=== PATIENT | female | born 1985 | race Two or more races ===

== ENCOUNTER 2017-08-26 11:56 | Emergency (ER) | payer BC, OTHER ==
[~2017-08-26] VITALS: Ht 175.3 cm; Wt 86.2 kg
--- NOTE | 2017-08-26 12:00 | NUR ---
AMBULATORY IN A STEADY GAIT, PT CAME TO ER W/ A FAMILY MEMBER FOR ON/OFF ABDOMINAL PAIN X 2WKS, WORSE SINCE SUNDAY, NAUSEA. +FACIAL GRIMACING NOTED. VSS NAD RR EVEN AND UNLABORED. PENDING ER EVALUATION
--- NOTE | 2017-08-26 12:05 | NUR ---
PRESENTS TO ER C/O ON/OFF ABDOMINAL PAIN X 2WKS, WORSE SINCE SUNDAY. ALSO C/O NAUSEA, NO VOMITING. A/OX 4. BREATHING EVEN AND UNLABORED. NO SOB. VITALS STABLE. SAFETY AND COMFORT MEASURES IN PLACE. AWAITING MD ORDERS.
[2017-08-26] MEDS ORDERED: ONDANSETRON HCL/PF 4 MG/2 ML VIAL ONE (12:18)
[2017-08-26] MEDS ORDERED: MORPHINE SULFATE INJ 4 MG/ML DISP.SYRIN ONE (12:18)
--- NOTE | 2017-08-26 12:25 | NUR ---
NEW IV STARTED ON RAC, 18 G. BLOOD DRAWN AND SENT TO LAB.
[2017-08-26 12:28] LABS: BASOPHILS % (AUTO) 0.4 % (0.0-2.0); EOSINOPHILS # (AUTO) 0.2 /CMM (0.0-0.7); EOSINOPHILS % (AUTO) 2.6 % (0.0-6.0); HEMATOCRIT 36 % (33-45); HEMOGLOBIN 12.4 g/dL (11.5-14.8); MEAN CORPUSCULAR HEMOGLOBIN 27 PG (26.0-33.0); MEAN CORPUSCULAR HGB CONC 34 g/dl (31.0-36.0); MEAN CORPUSCULAR VOLUME 78 fL (82-100); MONOCYTES # (AUTO) 0.3 /CMM (0.1-1.30); MONOCYTES % (AUTO) 4.3 % (2.0-12.0); NEUTROPHILS # (AUTO) 3.3 /CMM (1.8-8.9); NEUTROPHILS % (AUTO) 48.7 % (43.0-81.0); PLATELET COUNT (AUTO) 372 /CMM (150-450); RDW COEFFICIENT OF VARIATION 11.8 (11.5-15.0); RED BLOOD CELL COUNT(AUTO) 4.62 MIL/uL (4.0-5.2); WHITE BLOOD COUNT (AUTO) 6.8 K/uL (4.3-11.0)
[2017-08-26 12:29] LABS: APPEARANCE,URINE Clear (CLEAR); BILIRUBIN,URINE Negative (NEGATIVE); BLOOD, URINE Moderate Ery/uL (NEGATIVE); COLOR,URINE Yellow (YELLOW); KETONES,URINE Negative (NEGATIVE); LEUKOCYTE ESTERASE ,URINE Trace (NEGATIVE); NITRITE, URINE Negative (NEGATIVE); PH,URINE 6.5 (5.0-8.0); PROTEIN,URINE Negative (NEGATIVE); UGLUCOSE Negative (NEGATIVE); UROBILINOGEN,URINE 0.2 EU/dL (0.2)
[2017-08-26] MEDS ORDERED: ONDANSETRON HCL/PF 4 MG/2 ML VIAL IVP ONE (12:30)
[2017-08-26] MEDS ORDERED: IV NS 0.9% 1,000 ML BAG IV ONE (12:30)
[2017-08-26] MEDS ORDERED: MORPHINE SULFATE INJ 2 MG/ML DISP.SYRIN IV ONE (12:30)
[2017-08-26 12:39] LABS: CALCIUM, SERUM 9.4 mg/dL (8.5-10.1); CREATININE 0.8 mg/dL (0.6-1.3); POTASSIUM 4.2 mmol/L (3.5-5.1)
[2017-08-26 12:44] LABS: BACTERIA,URINE 1+ /HPF (None Seen); SQUAMOUS EPITHELIAL CELL,UR Few /HPF (None Seen)
[2017-08-26 12:50] LABS: ALBUMIN 3.7 g/dL (3.4-5.0); BILIRUBIN,TOTAL 0.4 mg/dL (0.2-1.0); TOTAL PROTEIN, SERUM 7.9 g/dL (6.4-8.2)
--- NOTE | 2017-08-26 13:10 | NUR ---
PATIENT TAKEN TO RADIOLOGY VIA WHEELCHAIR.
--- NOTE | 2017-08-26 13:33 | NUR ---
PATIENT RETURNED FROM RADIOLOGY IN STABLE CONDITION.
--- NOTE | 2017-08-26 16:11 | NUR ---
IV removed. Catheter intact and site benign. Pressure and 4x4 applied to site. No bleeding noted.Patient discharged to home in stable condition. Written and verbal after care instructions given. Patient verbalizes understanding of instruction. ambulatory with a steady gait.
[2017-08-26 16:12] VITALS: BP 125/60
== END 2017-08-26 16:14 | disposition home or self-care (01) ==
LOC: ER 12:01
DX: K80.50 Calculus of bile duct without cholangitis or cholecystitis without obstruction (principal)
CPT/HCPCS: 36415; 74176; 76705; 80048; 80076; 81001; 83690; 84703; 85025; 96361; 96374; 96375; 99285; A4606; J2270; J2405; J7030; Z7610; 81000-TC

== ENCOUNTER 2020-09-03 11:08 | Emergency (ER) | payer MEDICAID, OTHER ==
[~2020-09-03] VITALS: Ht 175.3 cm; Wt 72.6 kg
[2020-09-03 11:30] VITALS: BP 140/90
== END 2020-09-03 12:20 | disposition home or self-care (01) ==
LOC: ER 11:16
DX: U07.1 COVID-19 (principal); R06.02 Shortness of breath
CPT/HCPCS: 71045-TC

== ENCOUNTER 2021-08-28 19:39 | Emergency (ER) | payer MEDICAID ==
[~2021-08-28] VITALS: Ht 175.3 cm; Wt 72.6 kg
[2021-08-28 20:58] VITALS: BP 138/82
--- NOTE | 2021-08-28 21:02 | NUR ---
BIBS FOR C/O CP, BACK PAIN,. ABD PAIN, AND BLE WEAKNESS. TESTED + FOR COVID 4 DAYS AGO. INCREASED PAIN ON INSPIRATION AND COUGH. PT BREATHING EVEN AND UNLABORED PLACED ON MONITOR AND PULSE OX AND SATTING 100% ON RA.
[2021-08-28] MEDS ORDERED: HYDR-4303 PO (21:27)
== END 2021-08-28 21:46 | disposition home or self-care (01) ==
LOC: ER 19:45
DX: U07.1 COVID-19 (principal); R07.89 Other chest pain; Z60.2 Problems related to living alone

== ENCOUNTER 2022-05-15 01:17 | Emergency (ER) | payer SELFPAY ==
[~2022-05-15] VITALS: Ht 165.1 cm; Wt 74.8 kg
[~2022-05-15 01:17] MED LIST: HYDR-4303 PO
--- NOTE | 2022-05-15 02:06 | NUR ---
BROOKS FROM HOME TO ER BED 12. SLEEPING AND VERY DIFFICULT TO AROUSE. BROUGHT IN FOR ETOH. PER REPORT, PT HAD ABOUT 6 DRINKS WHEN SHE WENT TO HER ROOM AND PASSED OUT. NOT IN ANY DISTRESS. BREATHING EVEN AND UNLABORED.
[2022-05-15 02:08] LABS: BASOPHILS % (AUTO) 0.5 % (0.0-2.0); EOSINOPHILS % (AUTO) 0.4 % (0.0-6.0); HEMATOCRIT 36 % (33-45); HEMOGLOBIN 11.7 g/dL (11.5-14.8); LYMPHOCYTES # (AUTO) 1.1 K/uL (0.8-4.8); LYMPHOCYTES % (AUTO) 16.2 % (20.0-44.0); MEAN CORPUSCULAR HGB CONC 33 g/dl (31.0-36.0); MEAN CORPUSCULAR VOLUME 84 fL (82-100); MONOCYTES # (AUTO) 0.1 K/uL (0.1-1.30); MONOCYTES % (AUTO) 2.1 % (2.0-12.0); NEUTROPHILS # (AUTO) 5.3 K/uL (1.8-8.9); NEUTROPHILS % (AUTO) 80.8 % (43.0-81.0); PLATELET COUNT (AUTO) 242 K/uL (150-450); RED BLOOD CELL COUNT(AUTO) 4.26 MIL/uL (4.0-5.2); WHITE BLOOD COUNT (AUTO) 6.5 K/uL (4.3-11.0)
[2022-05-15 02:26] LABS: CALCIUM, SERUM 8.7 mg/dL (8.5-10.1); CARBON DIOXIDE 26 mmol/L (21-32); CHLORIDE 109 mmol/L (98-107); CREATININE 0.9 mg/dL (0.6-1.3); GLUCOSE 122 mg/dL (74-106); POTASSIUM 3.9 mmol/L (3.5-5.1); SODIUM SERUM 142 mmol/L (136-145); UREA NITROGEN, BLOOD 11 mg/dL (7-18)
[2022-05-15 02:32] LABS: ALANINE AMINOTRANSFERASE 16 U/L (12-78); ALBUMIN 3.8 g/dL (3.4-5.0); ALCOHOL, BLOOD 156 mg/dL (0-0); ALKALINE PHOSPHATASE 64 U/L (46-116); ASPARTATE AMINOTRANSFERASE 15 U/L (15-37); BILIRUBIN,DIRECT 0.1 mg/dL (0.0-0.2); BILIRUBIN,TOTAL 0.2 mg/dL (0.2-1.0); TOTAL PROTEIN, SERUM 7.5 g/dL (6.4-8.2)
[2022-05-15 02:34] LABS: ACETAMINOPHEN < 2 ug/ml (10-30)
--- NOTE | 2022-05-15 03:31 | NUR ---
Patient discharged to home in stable condition. Written and verbal after care instructions given. Patient verbalizes understanding of instruction.IV removed. Catheter intact and site benign. Pressure and 4x4 applied to site. No bleeding noted.
[2022-05-15 03:32] VITALS: BP 124/63
== END 2022-05-15 03:42 | disposition home or self-care (01) ==
LOC: ER 01:18
DX: F10.129 Alcohol abuse with intoxication, unspecified (principal); R51.9 Headache, unspecified; Z60.2 Problems related to living alone; Z79.899 Other long term (current) drug therapy; Y90.6 Blood alcohol level of 120-199 mg/100 ml
CPT/HCPCS: 36415; 70450-TC; 80048-TC; 80076-TC; 85025-TC; G0480

== ENCOUNTER 2024-05-24 14:23 | Emergency (ER) | payer SELFPAY ==
[~2024-05-24] VITALS: Ht 175.3 cm; Wt 80.7 kg
[2024-05-24] MEDS: METOCLOPRAMIDE HCL 10 MG/2 ML VIAL IV ONE (14:00)
[2024-05-24 14:44] VITALS: TEMP 98.2
[2024-05-24] MEDS ORDERED: FAMOTIDINE/PF INJ 40 MG in IV D5W 50 ML IV ONE (15:00)
[2024-05-24] MEDS: IV NS 0.9% 1,000 ML BAG IV ONE (15:10)
[2024-05-24] MEDS: PANTOPRAZOLE 80 MG in IV NS 0.9% 100 ML IV ONE (15:15)
[2024-05-24 15:16] LABS: BASOPHILS % (AUTO) 0.5 % (0.0-2.0); EOSINOPHILS # (AUTO) 0.1 K/uL (0.0-0.7); EOSINOPHILS % (AUTO) 2.4 % (0.0-6.0); HEMATOCRIT 36 % (33-45); LYMPHOCYTES % (AUTO) 37.7 % (20.0-44.0); MEAN CORPUSCULAR HEMOGLOBIN 27 PG (26.0-33.0); MEAN CORPUSCULAR HGB CONC 33 g/dl (31.0-36.0); MEAN CORPUSCULAR VOLUME 83 fL (82-100); MONOCYTES # (AUTO) 0.3 K/uL (0.1-1.30); MONOCYTES % (AUTO) 5.5 % (2.0-12.0); NEUTROPHILS # (AUTO) 2.9 K/uL (1.8-8.9); NEUTROPHILS % (AUTO) 53.9 % (43.0-81.0); PLATELET COUNT (AUTO) 268 K/uL (150-450); WHITE BLOOD COUNT (AUTO) 5.4 K/uL (4.3-11.0)
[2024-05-24 15:30] LABS: INR 1.01 (0.91-1.10); PARTIAL THROMBOPLASTIN TIME 27.3 SEC (24.3-34.3); PROTHROMBIN TIME 10.7 SECS (9.2-11.1)
[2024-05-24] MEDS ORDERED: FAMOTIDINE/PF INJ 20 MG/2 ML VIAL IV ONE (15:31)
[2024-05-24 15:35] LABS: CALCIUM, SERUM 8.9 mg/dL (8.5-10.1); CREATININE 0.8 mg/dL (0.6-1.3); POTASSIUM 3.8 mmol/L (3.5-5.1)
[2024-05-24] MEDS: FAMOTIDINE/PF INJ 20 MG/2 ML VIAL IV ONE (15:39)
[2024-05-24 15:40] LABS: ALBUMIN 3.6 g/dL (3.4-5.0); BILIRUBIN,DIRECT 0.1 mg/dL (0.0-0.2); BILIRUBIN,TOTAL 0.3 mg/dL (0.2-1.0); TOTAL PROTEIN, SERUM 7.2 g/dL (6.4-8.2)
[2024-05-24] MEDS ORDERED: METOCLOPRAMIDE HCL 10 MG/2 ML VIAL ONE (15:57)
[2024-05-24 16:12] LABS: PREGNANCY TEST URINE QUAL NEGATIVE (NEGATIVE)
[2024-05-24] MEDS ORDERED: IV NS 0.9% 250 ML IV ONE (16:22)
[2024-05-24] MEDS ORDERED: IOHEXOL-300 100 ML VIAL IV ONE (16:22)
[2024-05-24] MEDS ORDERED: CT SWABBABLE VALVE TRANS SET 1 EA INFUS.SET MC ONE (16:22)
[2024-05-24] MEDS ORDERED: FAMO20TA80 PO (18:16)
[2024-05-24] MEDS ORDERED: PANT40TA49 PO (18:16)
[2024-05-24] MEDS ORDERED: SUCR1TAB31 PO (18:16)
[2024-05-24 18:34] VITALS: BP 125/80; O2SAT 97
== END 2024-05-24 18:34 | disposition home or self-care (01) ==
LOC: ER 14:36
DX: K52.9 Noninfective gastroenteritis and colitis, unspecified (principal); R10.84 Generalized abdominal pain; R11.0 Nausea; Z87.11 Personal history of peptic ulcer disease; Z60.2 Problems related to living alone
CPT/HCPCS: 99285; 74177; 96365; 76705; 96375; 85025; 80048; 80076; 84703; 36415; 85730; 86850; J3490; J2765; J7030 ×2; J7050; J2470; Q9967; J7060

== ENCOUNTER 2024-09-27 18:32 | Emergency (ER) | payer SELFPAY ==
[~2024-09-27] VITALS: Ht 175.3 cm; Wt 81.6 kg
[~2024-09-27 18:32] MED LIST changes: +FAMO20TA80 PO; +PANT40TA49 PO; +SUCR1TAB31 PO
[2024-09-27] MEDS: KETOROLAC TROMETHAMINE 15 MG/ML VIAL IV ONE (19:00)
[2024-09-27] MEDS ORDERED: diphenhydrAMINE HCL 50 MG/ML VIAL ONE (19:11)
[2024-09-27] MEDS ORDERED: METOCLOPRAMIDE HCL 10 MG/2 ML VIAL ONE (19:11)
[2024-09-27] MEDS: diphenhydrAMINE HCL 50 MG/ML VIAL IV ONE (19:16)
[2024-09-27] MEDS: IV NS 0.9% 1,000 ML BAG IV ONE (19:16)
[2024-09-27] MEDS: METOCLOPRAMIDE HCL 10 MG/2 ML VIAL IV ONE (19:17)
[2024-09-27 19:22] LABS: BASOPHILS % (AUTO) 0.4 % (0.0-2.0); EOSINOPHILS # (AUTO) 0.2 K/uL (0.0-0.7); EOSINOPHILS % (AUTO) 2.3 % (0.0-6.0); HEMATOCRIT 36 % (33-45); HEMOGLOBIN 11.8 g/dL (11.5-14.8); LYMPHOCYTES # (AUTO) 3.1 K/uL (0.8-4.8); LYMPHOCYTES % (AUTO) 42.2 % (20.0-44.0); MEAN CORPUSCULAR HEMOGLOBIN 27 PG (26.0-33.0); MEAN CORPUSCULAR HGB CONC 33 g/dl (31.0-36.0); MEAN CORPUSCULAR VOLUME 83 fL (82-100); MONOCYTES # (AUTO) 0.5 K/uL (0.1-1.30); MONOCYTES % (AUTO) 6.2 % (2.0-12.0); NEUTROPHILS # (AUTO) 3.5 K/uL (1.8-8.9); NEUTROPHILS % (AUTO) 48.9 % (43.0-81.0); PLATELET COUNT (AUTO) 253 K/uL (150-450); RED BLOOD CELL COUNT(AUTO) 4.33 MIL/uL (4.0-5.2); RED CELL DISTRIBUTION WIDTH 13.1 % (11.5-15.0); WHITE BLOOD COUNT (AUTO) 7.3 K/uL (4.3-11.0)
[2024-09-27 19:35] LABS: CALCIUM, SERUM 8.8 mg/dL (8.5-10.1); CREATININE 0.8 mg/dL (0.6-1.3); POTASSIUM 4.2 mmol/L (3.5-5.1)
[2024-09-27 19:44] LABS: ALBUMIN 3.8 g/dL (3.4-5.0); BILIRUBIN,DIRECT 0.1 mg/dL (0.0-0.2); BILIRUBIN,TOTAL 0.2 mg/dL (0.2-1.0); TOTAL PROTEIN, SERUM 7.4 g/dL (6.4-8.2)
[2024-09-27] MEDS ORDERED: KETOROLAC TROMETHAMINE 15 MG/ML VIAL ONE (20:21)
[2024-09-27 20:40] VITALS: BP 116/65; TEMP 97.9; O2SAT 98
== END 2024-09-27 20:41 | disposition home or self-care (01) ==
LOC: ER 18:38
DX: R07.89 Other chest pain (principal); R51.9 Headache, unspecified; M79.602 Pain in left arm; R10.9 Unspecified abdominal pain; R11.0 Nausea; R21 Rash and other nonspecific skin eruption; R10.2 Pelvic and perineal pain; Z79.899 Other long term (current) drug therapy; Z87.19 Personal history of other diseases of the digestive system; Z60.2 Problems related to living alone
CPT/HCPCS: 99285; 96374; 96375; 71045; 96361; 93005; 85025; 80048; 83690; 80076; 36415; 84484; 84702; J1885; J1200; J2765; J7030

== ENCOUNTER 2024-12-22 18:50 | Emergency (ER) | payer OTHER ==
[~2024-12-22] VITALS: Ht 175.3 cm; Wt 81.6 kg
[2024-12-22 18:52] VITALS: BP 146/98; TEMP 98.4; O2SAT 99
[2024-12-22] MEDS ORDERED: LIDOCAINE 1% INJ 50 ML MDV IJ ONE (19:19)
== END 2024-12-22 19:50 | disposition home or self-care (01) ==
LOC: ER 18:55
DX: L72.3 Sebaceous cyst (principal); Z79.899 Other long term (current) drug therapy; Z60.2 Problems related to living alone
CPT/HCPCS: 99284; 10060; J3490

== ENCOUNTER 2024-12-27 19:10 | Emergency (ER) | payer OTHER ==
[~2024-12-27] VITALS: Ht 175.3 cm; Wt 81.6 kg
[2024-12-27] MEDS: LIDOCAINE 1%-EPI 1:100,000 20 ML VIAL TP ONE (20:27)
[2024-12-27] MEDS ORDERED: SULF1TAB48 PO (20:36)
[2024-12-27] MEDS ORDERED: CEPH-570 PO (20:36)
[2024-12-27 20:50] VITALS: BP 118/72; TEMP 98.3; O2SAT 97
== END 2024-12-27 20:51 | disposition home or self-care (01) ==
LOC: ER 19:15
DX: L72.3 Sebaceous cyst (principal); L08.9 Local infection of the skin and subcutaneous tissue, unspecified; Z79.899 Other long term (current) drug therapy; Z87.19 Personal history of other diseases of the digestive system; Z60.2 Problems related to living alone